=== PATIENT | male | born 1985 | race Caucasian/White ===

== ENCOUNTER 2016-09-06 22:41 | Emergency (ER) | payer OTHER ==
[2016-09-06] MEDS ORDERED: NS 1,000 ML IV ONE (23:06)
[2016-09-06] MEDS ORDERED: RANITIDINE 50 MG/2 ML VIAL IVP ONE (23:07)
[2016-09-06] MEDS ORDERED: methylPREDNISolone SOD SUCC 125 MG/2 ML VIAL IVP ONE (23:07)
--- NOTE | 2016-09-06 23:15 | EDPHY ---
H & P Time Seen by Provider: 09/06/16 22:48 HPI/ROS: CHIEF COMPLAINT: Difficulty breathing, pruritic rash HISTORY OF PRESENT ILLNESS: 30-year-old male presents to the emergency department by private vehicle complaining of difficulty breathing, tingling around his lips and pruritic rash since ingesting a protein powder containing hemp. The patient states he has a known allergy to marijuana. States that he drank a protein powder and within about 15 minutes he noted he red raised rash. He developed abdominal cramping and felt increasing difficulty breathing and presented to the emergency department for evaluation. The patient did try taking Pepto-Bismol and ibuprofen prior to coming to the hospital. He also took some Benadryl. He denies vomiting. No other treatment at home. No other known allergies anything. He does not take prescribed medication. REVIEW OF SYSTEMS: Constitutional: No fever, no chills. Eyes: No double or blurry vision. ENT: No sore throat. Respiratory: Shortness of breath, no cough Cardiac: No chest pain. Gastrointestinal: No abdominal pain, vomiting or diarrhea. Genitourinary: No dysuria. Musculoskeletal: No neck or back pain. Skin: Diffuse pruritic rash Neurological: No headache. 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 87% initially on room air. 158/84, anxious. Eyes: Pupils equal and round. Extraocular motions are all intact. ENT: Mouth: Mucous membranes moist. Respiratory: Expiratory wheeze specially in the apices bilaterally. No rales. Cardiovascular: Regular rate and rhythm. Gastrointestinal: Abdomen is soft and nontender, no masses, no rebound or guarding, bowel sounds normal. Neurological: Alert and oriented x 3, cranial nerves II through XII grossly intact Skin: Diffuse erythematous red raised welts to the neck, chest and abdomen and back consistent with urticaria. No vesicles. Musculoskeletal: Nontender to palpate along the cervical, thoracic or lumbar spine. Neck is supple. Extremities: Full range of motion and no peripheral edema. Psychiatric: Patient is oriented X 3, there is no agitation. Constitutional: Initial Vital Signs Temperature (C) 36.3 C 09/06/16 22:42 Heart Rate 95 09/06/16 22:42 Respiratory Rate 20 09/06/16 22:42 Blood Pressure 158/84 H 09/06/16 22:42 O2 Sat (%) 92 09/06/16 22:42 O2 Delivery Mode Room Air,B[place] O2 (L/minute) 10 Allergies/Adverse Reactions: marijuana Allergy (Verified 09/06/16 22:45) Home Medications: Medication Instructions Recorded EPINEPHRINE [EPIPEN] 0.3 mg IM ONCE #2 syr 09/06/16 predniSONE 60 mg PO DAILY 3 Days 09/06/16 Medical Decision Making ED Course/Re-evaluation: 30-year-old male presents to the emergency department with the difficulty breathing and pruritic rash after ingesting a protein powder containing hemp. The patient has a known allergy marijuana. The patient had an IV established and was given 25 mg of IV Benadryl, 50 mg of IV ranitidine, 125 mg of IV Solu-Medrol, and 0.3 mg of IM epinephrine. 11:40 p.m.: The patient is no longer erythematous. His difficulty breathing has resolved. He is no longer feeling tingling around his lips. He does however continued to feel very itchy. He is no longer red or flushed looking in his face. His hives are dissipating. Patient was given additional 25 mg of IV Benadryl. The patient will be discharged with EpiPen and referral to primary care provider. Differential Diagnosis: Including but not limited to anaphylaxis, acute allergic reaction, anxiety - Data Points Medications Given: Discontinued Medications Diphenhydramine HCl (Benadryl Injection) 25 mg IVP EDNOW ONE Stop: 09/06/16 23:08 Last Admin: 09/06/16 23:03 Dose: 25 mg Diphenhydramine HCl (Benadryl Injection) 25 mg IVP EDNOW ONE Stop: 09/06/16 23:39 Last Admin: 09/06/16 23:43 Dose: 25 mg Epinephrine HCl (Epinephrine) 0.3 mg IM EDNOW ONE Stop: 09/06/16 23:08 Last Admin: 09/06/16 23:00 Dose: 0.3 mg Sodium Chloride (Ns) 1,000 mls @ 0 mls/hr IV ONCE ONE PRN Reason: Wide Open Stop: 09/06/16 23:07 Last Admin: 09/06/16 23:04 Dose: 1,000 mls Methylprednisolone Sodium Succinate (Solu-Medrol) 125 mg IVP EDNOW ONE Stop: 09/06/16 23:08 Last Admin: 09/06/16 23:07 Dose: 125 mg Ranitidine HCl (Zantac) 50 mg IVP EDNOW ONE Stop: 09/06/16 23:08 Last Admin: 09/06/16 23:09 Dose: 50 mg Departure - Departure Disposition: Home, Routine, Self-Care Clinical Impression: Acute anaphylaxis Qualifiers: Encounter type: initial encounter Qualified Code(s): T78.2XXA - Anaphylactic shock, unspecified, initial encounter Condition: Good Instructions: Anaphylaxis (ED) Additional Instructions: Prednisone daily for 3 additional days, start this medication tomorrow since your given IV Solu-Medrol in the emergency department. You should carry the epi pen with you at all times. Benadryl 25 mg every 6 hours as needed for itching. Caution drowsiness. 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
[2016-09-07 00:25] VITALS: BP 118/73; O2SAT 93
[2016-09-07 01:03] VITALS: PULSE 80; RESP 13; TEMP 97.9
== END 2016-09-07 01:02 | disposition home or self-care (01) ==
DX: T78.2XXA Anaphylactic shock, unspecified, initial encounter (principal)
CPT/HCPCS: 96374; J0171; J1200; J2780